=== PATIENT | male | born 2005 | race Two or more races ===

== ENCOUNTER → 2024-03-03 | Outpatient (CLI) | payer OTHER, SELFPAY ==
[2024-03-03 14:32] LABS: Urea Breath Test Negative (Negative)
== END | disposition home or self-care (01) ==
LOC: COPL 13:24
PROVIDERS: PCP Family Medicine; Referring Provider Registered Nurse; Visit Provider Registered Nurse
DX: R79.89 Other specified abnormal findings of blood chemistry (principal); R10.32 Left lower quadrant pain; R11.0 Nausea
CPT/HCPCS: 83013; 83014

== ENCOUNTER → 2024-06-08 | Outpatient (CLI) | payer OTHER, SELFPAY ==
[2024-06-08 10:31] LABS: Quantiferon-TB* See Sep Rpt
[2024-06-08 11:40] LABS: Ferritin 74 ng/mL (10.5-307.3)
[2024-06-08 12:16] LABS: Folate 19.55 ng/mL (>5.38); Hepatitis A Antibody IgM Non Reactive (Non React); Hepatitis B Core Antibody IgM Non Reactive (Non React); Hepatitis B Surface Antigen Non Reactive (Non React); Hepatitis C Antibody Non Reactive (Non React); Vitamin B12 697 pg/mL (211-911)
[2024-06-14 07:04] LABS: Helicobacter pylori Ag, Stool* NOT DETECTED (NOT DETECTED)
[2024-06-15 06:22] LABS: Calprotectin, Stool* 19 mcg/g
[2024-06-20 06:46] LABS: HIV Ag/Ab, 4th Gen NON-REACTIVE; Immunoglobulin A 359 mg/dL (47-310); tTG Ab, IgA <1.0 U/mL
== END | disposition home or self-care (01) ==
PROVIDERS: Referring Provider Internal Medicine Gastroenterology; Visit Provider Internal Medicine Gastroenterology
DX: R11.0 Nausea (principal)
CPT/HCPCS: 36415; 80074; 82607; 82728; 82746; 82784; 83993; 86364; 86480; 87338; 87389